=== PATIENT | male | born 1970 | race Caucasian/White ===

== ENCOUNTER 2021-04-14 17:01 | Emergency (ER) | payer OTHER ==
[~2021-04-14] VITALS: Ht 167.6 cm; Wt 79.4 kg
--- NOTE | 2021-04-14 17:06 | NUR ---
PT AMBULATED TO BED 09.
--- NOTE | 2021-04-14 17:10 | NUR ---
50 Y/O M BIB SON FROM HOME, PATIENT PRESENTS TO ED WITH EPIGASTRIC PAIN THAT STARTED TODAY WITH HEADACHE AND NUMBNESS ON L SIDE OF THE FACE, NAUSEA AND VOMITING. PT STATES HE TOOK PEPTO AROUND 1200 TODAY WITH NO RELIEF BECAUSE "I THREW UP AFTER I DRANK IT"; SKIN IS PINK/WARM/DRY; AAOX4 WITH EVEN AND STEADY GAIT; LUNGS CLEAR BL; HR EVEN AND REGULAR; PT DENIES ANY FEVER, CP, SOB, OR COUGH AT THIS TIME; PATIENT STATES PAIN OF 5/10 AT THIS TIME; VSS; PATIENT POSITIONED FOR COMFORT; HOB ELEVATED; BEDRAILS UP X2; BED DOWN. ER MD MADE AWARE OF PT STATUS. PMH: DM2, HTN MED: CAPTOPRIL 40MG NKA
[2021-04-14 17:14] VITALS: BP 199/115
[2021-04-14] MEDS: ONDANSETRON 4 MG ODT PO ONE (17:35)
[2021-04-14] MEDS: KETOROLAC 30 MG/ML VIAL IVP ONE (18:26)
[2021-04-14 18:27] LABS: APPEARANCE,URINE CLEAR (CLEAR); BILIRUBIN,URINE NEGATIVE (NEGATIVE); BLOOD, URINE NEGATIVE (NEGATIVE); COLOR,URINE YELLOW (YELLOW); LEUKOCYTE ESTERASE ,URINE NEGATIVE (NEGATIVE); NITRITE, URINE NEGATIVE (NEGATIVE); UGLUCOSE 3+ (NEGATIVE)
[2021-04-14] MEDS: ONDANSETRON 4 MG/2 ML VIAL IVP ONE (18:27)
[2021-04-14] MEDS: NACL 0.9% 1,000 ML IV SCH (18:28)
[2021-04-14 18:29] LABS: BASOPHILS % (AUTO) 0.1 % (0.0-2.0); EOSINOPHILS # (AUTO) 0.1 K/uL (0-0.4); EOSINOPHILS % (AUTO) 1.2 % (0.0-4.0); HEMATOCRIT 49.7 % (36-52); HEMOGLOBIN 16.9 g/dL (12.0-18.0); LYMPHOCYTES # (AUTO) 1.2 K/uL (2.0-11.5); LYMPHOCYTES % (AUTO) 12.8 % (20.5-51.1); MEAN CORPUSCULAR HEMOGLOBIN 30 pg (27-31); MEAN CORPUSCULAR HGB CONC 34 g/dL (33-37); MEAN CORPUSCULAR VOLUME 87.6 fL (80-94); MONOCYTES # (AUTO) 0.4 K/uL (0.8-1.0); MONOCYTES % (AUTO) 4.3 % (1.7-9.3); NEUTROPHILS # (AUTO) 7.5 K/uL (1.8-7.7); NEUTROPHILS % (AUTO) 81.6 % (42.2-75.2); PLATELET COUNT (AUTO) 309 K/uL (140-450); RED BLOOD CELL COUNT(AUTO) 5.67 MIL/uL (4.20-6.10); RED CELL DISTRIBUTION WIDTH 13.1 % (11.6-13.7); WHITE BLOOD COUNT (AUTO) 9.3 K/uL (4.8-10.8)
[2021-04-14 18:45] LABS: ALBUMIN 4.4 g/dL (3.4-5.0); ANION GAP 17.6 (8-16); CARBON DIOXIDE 24.1 mmol/L (21-32); CREATININE 0.7 mg/dL (0.6-1.3); POTASSIUM 3.7 mmol/L (3.5-5.1); TOTAL BILIRUBIN 0.9 mg/dL (0.0-1.0)
[2021-04-14] MEDS ORDERED: IBUP-2213 PO (19:05)
[2021-04-14] MEDS ORDERED: ONDA8TAB87 PO (19:05)
--- NOTE | 2021-04-14 19:05 | NUR ---
RECEIVED REPORT FROM DORIAN CORDERO, FOR CONTINUITY OF CARE
[2021-04-14 19:18] VITALS: BP 172/104
--- NOTE | 2021-04-14 19:18 | NUR ---
Patient discharged with v/s stable. Written and verbal after care instructions given and explained. Patient alert, oriented and verbalized understanding of instructions. Ambulatory with steady gait. All questions addressed prior to discharge. ID band removed. Patient advised to follow up with PMD. Rx of ZOFRAN AND IBUPROFEN given. Patient educated on indication of medication including possible reaction and side effects. Opportunity to ask questions provided and answered.
== END 2021-04-14 19:18 | disposition home or self-care (01) ==
LOC: MED 17:01
DX: R10.13 Epigastric pain (principal); R11.2 Nausea with vomiting, unspecified; R51.9 Headache, unspecified; I10 Essential (primary) hypertension; E11.9 Type 2 diabetes mellitus without complications
CPT/HCPCS: 36415; 80053; 81003; 83690; 85025; 96374; 96375; 99284; J1885; J2405; J7030; Q0162

== ENCOUNTER 2023-04-02 15:55 | Emergency (ER) | payer OTHER ==
[~2023-04-02] VITALS: Ht 170.2 cm; Wt 78.7 kg
[~2023-04-02 15:55] MED LIST: IBUP-2213 PO; ONDA8TAB87 PO
[2023-04-02 16:02] VITALS: BP 189/112
--- NOTE | 2023-04-02 16:09 | NUR ---
ASSISTED PATIENT TO BED 8, PLACED PATIENT IN GOWN.
[2023-04-02] MEDS ORDERED: ONDANSETRON 4 MG ODT PO ONE (16:25)
[2023-04-02] MEDS ORDERED: ACETAMINOPHEN 325 MG TAB PO ONE (16:25)
[2023-04-02] MEDS ORDERED: ALUMINUM HYD/MAG/SIMETHICONE 30 ML UDC PO ONE (16:25)
[2023-04-02 16:42] LABS: BASOPHILS % (AUTO) 0.4 % (0.0-2.0); HEMATOCRIT 50.2 % (36-52); HEMOGLOBIN 17.3 g/dL (12.0-18.0); LYMPHOCYTES # (AUTO) 1.1 K/uL (2.0-11.5); LYMPHOCYTES % (AUTO) 10.5 % (20.5-51.1); MEAN CORPUSCULAR HEMOGLOBIN 30 pg (27-31); MEAN CORPUSCULAR HGB CONC 35 g/dL (33-37); MEAN CORPUSCULAR VOLUME 87.6 fL (80-94); MONOCYTES # (AUTO) 0.3 K/uL (0.8-1.0); MONOCYTES % (AUTO) 2.7 % (1.7-9.3); NEUTROPHILS # (AUTO) 9.1 K/uL (1.8-7.7); NEUTROPHILS % (AUTO) 86.4 % (42.2-75.2); PLATELET COUNT (AUTO) 303 K/uL (140-450); RED BLOOD CELL COUNT(AUTO) 5.73 MIL/uL (4.20-6.10); RED CELL DISTRIBUTION WIDTH 13.4 % (11.6-13.7); WHITE BLOOD COUNT (AUTO) 10.5 K/uL (4.8-10.8)
[2023-04-02 17:00] LABS: ALBUMIN 4.3 g/dL (3.4-5.0); ANION GAP 11.7 (8-16); CARBON DIOXIDE 28.4 mmol/L (21-32); CREATININE 0.9 mg/dL (0.6-1.3); POTASSIUM 4.1 mmol/L (3.5-5.1); TOTAL BILIRUBIN 1.1 mg/dL (0.0-1.0)
[2023-04-02] MEDS ORDERED: CLONIDINE HYDROCHLORIDE 0.1 MG TAB PO ONE (17:00)
[2023-04-02 17:03] LABS: LIPASE 84 U/L (73-393)
--- NOTE | 2023-04-02 17:11 | NUR ---
X-Ray at bedside.
--- NOTE | 2023-04-02 17:47 | NUR ---
PATIENT BP 203/120. MD AWARE.
[2023-04-02] MEDS ORDERED: LISI-486 PO (17:54)
[2023-04-02] MEDS ORDERED: OMEP40EC23 PO (17:54)
[2023-04-02] MEDS ORDERED: SUCR1TAB35 PO (17:54)
[2023-04-02 18:28] VITALS: BP 181/99
--- NOTE | 2023-04-02 20:23 | NUR ---
Dr. Chung explained results and treatment plans via boom supervisor.
--- NOTE | 2023-04-02 21:00 | NUR ---
Patient discharged with v/s stable. Written and verbal after care instructions given and explained. Patient alert, oriented and verbalized understanding of instructions. Ambulatory with steady gait. All questions addressed prior to discharge. ID band removed. Patient advised to follow up with PMD. Rx of lisinopril, prilosec, and sucralfate given. Opportunity to ask questions provided and answered. reinforced Dr. Chung's orders
== END 2023-04-02 21:00 | disposition home or self-care (01) ==
LOC: MED 15:55
DX: R10.13 Epigastric pain (principal); R07.9 Chest pain, unspecified; E11.9 Type 2 diabetes mellitus without complications; I10 Essential (primary) hypertension; Z79.4 Long term (current) use of insulin; Z79.899 Other long term (current) drug therapy
CPT/HCPCS: 36415; 71045; 80053; 83690; 83880; 84484; 85025; 85379; 93005; 99285; Q0162